=== PATIENT | female | born 1970 | race Caucasian/White ===

== ENCOUNTER → 2020-08-18 | Outpatient (CLI) | payer MEDICARE, OTHER ==
[~2020-08-18] MED LIST: ACETAMINOPHEN-1 EAC1 PO; ASPIRIN EC81 MG PO; CARBAMAZEPINE200 M2 PO; CLONAZEPAM1 MG PO; DESYREL 50 MG T50 MG PO; ESTRADIOL1 EAC3 TD; FUROSEMIDE20 MG PO; GLUCOPHAGE XR500 M1 PO; LIOTHYRONINE SO5 MCG PO; LOVASTATIN20 MG PO; MAG-G27 MG PO; ONDANSETRON HCL4 MG PO; POTASSIUM CHLO10 ME1 PO; SINEQUAN CAP 1010 MG PO; TIZANIDINE HCL4 MG PO; VISTARIL 50 MG50 MG PO; ZOFRAN4 MG PO; ZYLOPRIM 300 M300 MG PO
[2020-08-18 12:08] LABS: HEMOGLOBIN 15.7 gm/dl (12.3-15.3); RED BLOOD COUNT 4.9 M/UL (4.00-5.10); WHITE BLOOD COUNT 9.2 K/UL (4.5-11.0)
[2020-08-18 12:40] LABS: BUN/CREATININE RATIO 12 (0-10)
== END ==
LOC: LAB 10:53
PROVIDERS: Family Medicine
DX: E78.5 Hyperlipidemia, unspecified (principal)
CPT/HCPCS: 36415; 80053; 80061; 84443; 85025

== ENCOUNTER → 2020-11-13 | Day surgery (SDC) | payer MEDICARE, OTHER | END | disposition home or self-care (01) | LOC: OR 07:08 | DX: Z12.11 Encounter for screening for malignant neoplasm of colon (principal); D12.6 Benign neoplasm of colon, unspecified; K31.7 Polyp of stomach and duodenum; K31.9 Disease of stomach and duodenum, unspecified; K57.30 Diverticulosis of large intestine without perforation or abscess without bleeding; K64.1 Second degree hemorrhoids; K63.89 Other specified diseases of intestine; K21.9 Gastro-esophageal reflux disease without esophagitis; Z20.822 Contact with and (suspected) exposure to COVID-19 | CPT/HCPCS: 82962; J2704; J7040; U0002 ==

== ENCOUNTER → 2021-07-01 | Outpatient (CLI) | payer MEDICARE, OTHER | LOC: EMI 06-18 15:45 | DX: M54.16 Radiculopathy, lumbar region (principal); G89.29 Other chronic pain; M54.50 Low back pain, unspecified; M47.817 Spondylosis without myelopathy or radiculopathy, lumbosacral region | CPT/HCPCS: 72148 ==

== ENCOUNTER → 2021-12-23 | Outpatient (CLI) | payer MEDICARE, OTHER | LOC: KOH-I 15:03 | DX: M46.1 Sacroiliitis, not elsewhere classified (principal); M54.16 Radiculopathy, lumbar region; M54.9 Dorsalgia, unspecified; M16.11 Unilateral primary osteoarthritis, right hip | CPT/HCPCS: 73700 ==